=== PATIENT | male | born 1975 | race African-American/Black ===

== ENCOUNTER 2016-09-12 00:42 | Emergency (ER) | payer MEDICAID ==
[~2016-09-12] VITALS: Ht 170.2 cm; Wt 71.0 kg
[2016-09-12 04:45] VITALS: BP 106/61
== END 2016-09-12 05:16 | disposition left against medical advice (07) ==
LOC: ER 00:42
DX: M54.9 Dorsalgia, unspecified (principal); Z53.21 Procedure and treatment not carried out due to patient leaving prior to being seen by health care provider

== ENCOUNTER 2017-03-23 16:33 | Emergency (ER) | payer MEDICAID ==
[~2017-03-23] VITALS: Ht 172.7 cm; Wt 48.0 kg
[2017-03-23 16:41] VITALS: BP 112/60
[2017-03-23] MEDS ORDERED: IPRATROPIUM/ALBUTEROL 0.5-3(2.5)MG/3ML NEB HHN ONE (17:15)
== END 2017-03-23 18:59 | disposition left against medical advice (07) ==
LOC: ER 16:38
DX: R06.02 Shortness of breath (principal); R06.2 Wheezing; R05 Cough; Z71.89 Other specified counseling; R00.0 Tachycardia, unspecified; C34.90 Malignant neoplasm of unspecified part of unspecified bronchus or lung; F12.90 Cannabis use, unspecified, uncomplicated; L90.5 Scar conditions and fibrosis of skin; Z86.19 Personal history of other infectious and parasitic diseases
CPT/HCPCS: 94640; 99283; J7620; Z7610

== ENCOUNTER 2017-03-24 22:28 | Emergency (ER) | payer MEDICAID ==
[~2017-03-24] VITALS: Ht 167.6 cm; Wt 41.0 kg
[2017-03-25 00:31] VITALS: BP 93/63
== END 2017-03-25 01:50 | disposition left against medical advice (07) ==
LOC: ER 22:37
DX: R06.02 Shortness of breath (principal); F17.200 Nicotine dependence, unspecified, uncomplicated; Z53.21 Procedure and treatment not carried out due to patient leaving prior to being seen by health care provider
CPT/HCPCS: Z7610 ×3

== ENCOUNTER 2017-04-02 11:45 | Emergency (ER) | payer MEDICAID ==
[~2017-04-02] VITALS: Ht 167.6 cm; Wt 45.0 kg
[2017-04-02 11:47] VITALS: BP 90/42
[2017-04-02] MEDS ORDERED: IPRATROPIUM BROMIDE (0.02%) 0.5MG/2.5ML NEB HHN STA (15:33)
[2017-04-02] MEDS ORDERED: ALBUTEROL (0.083%) 2.5MG/3ML NEB HHN STA (15:33)
== END 2017-04-02 15:42 | disposition left against medical advice (07) ==
LOC: ER 12:01
DX: R06.2 Wheezing (principal); R06.03 Acute respiratory distress; F12.10 Cannabis abuse, uncomplicated; Z85.118 Personal history of other malignant neoplasm of bronchus and lung
CPT/HCPCS: 99283; Z7610

== ENCOUNTER 2017-04-08 09:53 | Inpatient (IN) | payer MEDICAID ==
[~2017-04-08] VITALS: Ht 167.6 cm; Wt 45.9 kg
[2017-04-08] VITALS (37 sets, daily range): BP systolic 82–111; BP diastolic 42–72
[2017-04-08] MEDS: IPRATROPIUM/ALBUTEROL 0.5-3(2.5)MG/3ML NEB HHN SCH ×2 (00:35→20:31)
[2017-04-08] MEDS ORDERED: DEXTROSE 50% WATER 50ML SYRINGE IV ONE (10:11)
[2017-04-08] MEDS ORDERED: SODIUM CHLORIDE 0.9% 1000ML BAG (SEPSIS BOLUS) IV ONE (10:15)
[2017-04-08] MEDS ORDERED: FENTANYL CITRATE/PF 50MCG/ML 2ML VIAL ONE (10:26)
[2017-04-08] MEDS ORDERED: MIDAZOLAM HCL 50 MG in DEXTROSE 5% WATER 40 ML IV ONE (10:30)
[2017-04-08] MEDS ORDERED: FENTANYL CITRATE/PF 500 MCG in SODIUM CHLORIDE 0.9% 40 ML IV PRN ×2 (10:30→10:45)
[2017-04-08] MEDS ORDERED: IPRATROPIUM BROMIDE (0.02%) 0.5MG/2.5ML NEB HHN STA (10:42)
[2017-04-08] MEDS ORDERED: METHYLPREDNISOLONE SOD SUCC 125 MG/2 ML VIAL IV STA (10:42)
[2017-04-08] MEDS ORDERED: ETOMIDATE 2MG/ML 10ML VIAL IV ONE (10:44)
[2017-04-08] MEDS ORDERED: ATROPINE SULFATE 1MG/10ML SYR ONE (10:44)
[2017-04-08] MEDS ORDERED: MIDAZOLAM HCL 50 MG in DEXTROSE 5% WATER 40 ML IV PRN (10:45)
[2017-04-08] MEDS ORDERED: MAGNESIUM 2 G PREMIX 50 ML IV ONE (10:45)
[2017-04-08] MEDS ORDERED: PROPOFOL 10MG/ML 100ML 100 ML IV ONE (10:59)
[2017-04-08] MEDS ORDERED: ALBUTEROL (0.083%) 2.5MG/3ML NEB HHN SCH (11:00)
[2017-04-08] MEDS ORDERED: PROPOFOL 10MG/ML 100ML 100 ML IV SCH (11:15)
[2017-04-08 11:21] LABS: BASOPHILS % 0.2 % (0.0-2.0); EOSINOPHILS % 0.3 % (0.0-5.0); HEMATOCRIT. 30.9 % (42.0-52.0); HEMOGLOBIN. 8.9 g/dL (14.0-18.0); LYMPHOCYTES % 13.6 % (20.0-50.0); MEAN CORPUSCULAR HEMOGLOBIN 22.7 pg (28.0-32.0); MEAN CORPUSCULAR VOLUME 78.6 fL (80.0-94.0); MEAN PLATELET VOLUME 6.7 fl (7.4-10.4); MONOCYTES % 5.6 % (2.0-8.0); NEUTROPHILS % 80.3 % (40.0-76.0); RED BLOOD CELL COUNT 3.93 mill/uL (4.7-6.1); RED CELL DISTRIBUTION WIDTH 17.4 % (11.6-14.6)
[2017-04-08 11:26] LABS: PLATELET 1166 x1000/uL (130-400)
[2017-04-08 11:28] LABS: CLARITY URINE CLOUDY (CLEAR); COLOR URINE YELLOW (YELLOW); KETONES URINE NEGATIVE (NEGATIVE); LEUKOCYTE ESTERASE URINE NEGATIVE (NEGATIVE); NITRITE URINE NEGATIVE (NEGATIVE); OCCULT BLOOD URINE 1+ (NEGATIVE); PROTEIN URINE 3+ (NEGATIVE)
[2017-04-08 11:40] LABS: INR 1.4; PROTHROMBIN TIME 14.5 sec (9.4-11.6)
[2017-04-08 11:44] LABS: CARBON DIOXIDE 25 mEq/L (21-32); CHLORIDE 99 mEq/L (98-107); TROPONIN I < 0.02 ng/mL (0.00-0.04)
[2017-04-08 11:45] LABS: PLATELET ESTIMATE MARKEDLY INCREASED
[2017-04-08 11:50] LABS: *AMPHETAMINES SCREEN URINE NEGATIVE (NEGATIVE); *BARBITURATES SCREEN URINE NEGATIVE (NEGATIVE); *BENZODIAZEPINES SCREEN URINE NEGATIVE (NEGATIVE); *COCAINE SCREEN URINE NEGATIVE (NEGATIVE); CANNABINOID URINE SCREEN NEGATIVE (NEGATIVE); METHADONE URINE SCREEN NEGATIVE (NEGATIVE); OPIATES URINE SCREEN PRESUMTIVE POSITIVE (NEGATIVE); PHENCYCLIDINE URINE SCREEN NEGATIVE (NEGATIVE)
[2017-04-08] MEDS ORDERED: VANCOMYCIN 1 G PREMIX 200 ML IV ONE (12:15)
[2017-04-08] MEDS ORDERED: PIPERACILLIN/TAZ 3.375G PREMIX 50 ML IV ONE (12:15)
[2017-04-08] MEDS ORDERED: IPRATROPIUM/ALBUTEROL 0.5-3(2.5)MG/3ML NEB HHN PRN (12:30)
[2017-04-08] MEDS ORDERED: IPRATROPIUM/ALBUTEROL 0.5-3(2.5)MG/3ML NEB INH PRN (12:30)
[2017-04-08] MEDS ORDERED: PROPOFOL 10MG/ML 100ML 100 ML IV PRN (12:30)
[2017-04-08] MEDS ORDERED: ACETAMINOPHEN 325MG TABLET PO PRN (12:30)
[2017-04-08] MEDS ORDERED: CLONIDINE 0.1MG TABLET PO PRN (12:30)
[2017-04-08] MEDS ORDERED: MAGNESIUM/ALUMINUM HYDROXIDE/SIMETHICONE 30ML UDC PO PRN (12:30)
[2017-04-08 12:44] LABS: BG BASE EXCESS -2.2 mmol/L (-2.0-2.0); BG CARBOXYHEMOGLOBIN 0.5 % (0.5-1.5); BG FRACTION INSPIRED OXYGEN 90; BG HCO3 ACT 24.7 mmol/L (22.0-26.0); BG METHEMOGLOBIN 0.1 % (0.0-1.5); BG OXYHEMOGLOBIN 99.4 % (94.0-97.0); BG PCO2 52.5 mmHg (35.0-45.0); BG PO2 402.7 mmHg (75.0-100.0); BG SAMPLE SITE RIGHT RADIAL; BG TIDAL VOLUME(mL) 400 mL; BG TOTAL HEMOGLOBIN 9.7 g/dL (12.0-18.0); BG VENT MODE VENT - A/C; BG VENT RATE 16 set
[2017-04-08] MEDS ORDERED: IOHEXOL-350 100 ML BOTTLE ONE (12:54)
[2017-04-08] MEDS ORDERED: VANCOMYCIN 1250MG in DEXTROSE 5% WATER 250ML IV NR (15:30)
[2017-04-08] MEDS: PANTOPRAZOLE SODIUM 40 MG/VIAL IV SCH (16:11)
[2017-04-08] MEDS: PIPERACILLIN/TAZ 3.375G PREMIX 50 ML IV SCH ×2 (16:11→21:40)
[2017-04-08] MEDS: ENOXAPARIN 40MG/0.4ML SYR SUBCUT SCH (16:12)
[2017-04-08 16:22] LABS: CREATINE KINASE 75 IU/L (39-308); CREATINE KINASE MB FRACTION 1.5 ng/mL (0.5-3.6); TOTAL IRON BINDING CAPACITY 99 ug/dL (250-450); TROPONIN I < 0.02 ng/mL (0.00-0.04)
[2017-04-08] MEDS ORDERED: FENTANYL CITRATE/PF 50MCG/ML 2ML VIAL IV NR (19:15)
[2017-04-08] MEDS: VANCOMYCIN 750 MG PREMIX 150 ML IV SCH (23:06)
[2017-04-08] MEDS: NOREPINEPHRINE 4 MG in DEXT 5% WATER 246 ML IV PRN ×2 (23:09→23:48)
[2017-04-08 23:27] LABS: CREATINE KINASE 49 IU/L (39-308); CREATINE KINASE MB FRACTION 1.2 ng/mL (0.5-3.6); TROPONIN I < 0.02 ng/mL (0.00-0.04)
[2017-04-09] VITALS (59 sets, daily range): BP systolic 78–132; BP diastolic 30–85
[2017-04-09 02:43] LABS: BG BASE EXCESS -1.8 mmol/L (-2.0-2.0); BG CARBOXYHEMOGLOBIN 0.3 % (0.5-1.5); BG DEOXYHEMOGLOBIN 0.1 % (0.0-5.0); BG FRACTION INSPIRED OXYGEN 100; BG HCO3 ACT 21.4 mmol/L (22.0-26.0); BG METHEMOGLOBIN 0.1 % (0.0-1.5); BG OXYGEN SATURATION 99.9 % (92.0-98.5); BG OXYHEMOGLOBIN 99.5 % (94.0-97.0); BG PCO2 30.6 mmHg (35.0-45.0); BG PH 7.463 (7.350-7.450); BG PO2 290.4 mmHg (75.0-100.0); BG SAMPLE SITE LEFT RADIAL; BG TOTAL HEMOGLOBIN 9.5 g/dL (12.0-18.0); BG VENT MODE MASK - NRB
[2017-04-09] MEDS: PIPERACILLIN/TAZ 3.375G PREMIX 50 ML IV SCH ×3 (03:46→18:30)
[2017-04-09] MEDS: IPRATROPIUM/ALBUTEROL 0.5-3(2.5)MG/3ML NEB HHN SCH ×6 (04:19→20:48)
[2017-04-09] MEDS: VANCOMYCIN 750 MG PREMIX 150 ML IV SCH ×2 (04:33→10:25)
[2017-04-09 05:30] LABS: BASOPHILS % 0.4 % (0.0-2.0); HEMATOCRIT. 32.2 % (42.0-52.0); HEMOGLOBIN. 9.7 g/dL (14.0-18.0); LYMPHOCYTES % 8.4 % (20.0-50.0); MEAN CORPUSCULAR VOLUME 76.5 fL (80.0-94.0); MEAN PLATELET VOLUME 6.9 fl (7.4-10.4); MONOCYTES % 5.2 % (2.0-8.0); RED BLOOD CELL COUNT 4.21 mill/uL (4.7-6.1); RED CELL DISTRIBUTION WIDTH 17.3 % (11.6-14.6)
[2017-04-09 05:54] LABS: PLATELET 1056 x1000/uL (130-400)
[2017-04-09 06:28] LABS: CARBON DIOXIDE 23 mEq/L (21-32); CHLORIDE 102 mEq/L (98-107)
[2017-04-09 06:39] LABS: HDL CHOLESTEROL 33 mg/dL (40-59); LDL CHOLESTEROL 44 mg/dL (5-100)
[2017-04-09] MEDS: PANTOPRAZOLE SODIUM 40 MG/VIAL IV SCH (08:19)
[2017-04-09] MEDS: MORPHINE SULFATE 4 MG/ML CPJ (NOT FOR IM USE) IV PRN ×4 (08:20→20:19)
[2017-04-09 09:31] LABS: BG BASE EXCESS 0.6 mmol/L (-2.0-2.0); BG CARBOXYHEMOGLOBIN 0.2 % (0.5-1.5); BG DEOXYHEMOGLOBIN 1.3 % (0.0-5.0); BG FRACTION INSPIRED OXYGEN 50; BG HCO3 ACT 24.6 mmol/L (22.0-26.0); BG METHEMOGLOBIN 0.3 % (0.0-1.5); BG OXYGEN SATURATION 98.7 % (92.0-98.5); BG OXYHEMOGLOBIN 98.2 % (94.0-97.0); BG PCO2 37.1 mmHg (35.0-45.0); BG PO2 131.4 mmHg (75.0-100.0); BG SAMPLE SITE LEFT RADIAL; BG TOTAL HEMOGLOBIN 9.2 g/dL (12.0-18.0); BG VENT MODE MASK - VENTI
[2017-04-09] MEDS: ENOXAPARIN 40MG/0.4ML SYR SUBCUT SCH (15:44)
[2017-04-09] MEDS: VANCOMYCIN 1 G PREMIX 200 ML IV SCH (23:19)
[2017-04-10] VITALS (14 sets, daily range): BP systolic 93–127; BP diastolic 51–92
[2017-04-10] MEDS: MORPHINE SULFATE 4 MG/ML CPJ (NOT FOR IM USE) IV PRN ×6 (00:08→21:20)
[2017-04-10] MEDS: IPRATROPIUM/ALBUTEROL 0.5-3(2.5)MG/3ML NEB HHN SCH ×7 (00:58→23:35)
[2017-04-10] MEDS: PIPERACILLIN/TAZ 3.375G PREMIX 50 ML IV SCH ×4 (01:07→17:19)
[2017-04-10] MEDS: VANCOMYCIN 1 G PREMIX 200 ML IV SCH ×3 (06:27→22:19)
[2017-04-10] MEDS: PANTOPRAZOLE SODIUM 40 MG/VIAL IV SCH (08:00)
[2017-04-10 08:36] LABS: HEMATOCRIT. 26.6 % (42.0-52.0); HEMOGLOBIN. 8.1 g/dL (14.0-18.0); LYMPHOCYTES % 8.6 % (20.0-50.0); MEAN CORPUSCULAR HEMOGLOBIN 22.9 pg (28.0-32.0); MEAN CORPUSCULAR VOLUME 75.2 fL (80.0-94.0); MEAN PLATELET VOLUME 6.4 fl (7.4-10.4); MONOCYTES % 8.1 % (2.0-8.0); NEUTROPHILS % 83.3 % (40.0-76.0); PLATELET 949 x1000/uL (130-400); RED BLOOD CELL COUNT 3.54 mill/uL (4.7-6.1); RED CELL DISTRIBUTION WIDTH 17.1 % (11.6-14.6)
[2017-04-10 09:11] LABS: CARBON DIOXIDE 27 mEq/L (21-32); CHLORIDE 102 mEq/L (98-107)
[2017-04-10] MEDS: ENOXAPARIN 40MG/0.4ML SYR SUBCUT SCH (13:50)
[2017-04-10 14:46] LABS: BG BASE EXCESS 0.6 mmol/L (-2.0-2.0); BG CARBOXYHEMOGLOBIN 0.4 % (0.5-1.5); BG DEOXYHEMOGLOBIN 0.1 % (0.0-5.0); BG FRACTION INSPIRED OXYGEN 100; BG HCO3 ACT 24.2 mmol/L (22.0-26.0); BG METHEMOGLOBIN 0.3 % (0.0-1.5); BG OXYGEN SATURATION 99.9 % (92.0-98.5); BG OXYHEMOGLOBIN 99.2 % (94.0-97.0); BG PCO2 34.9 mmHg (35.0-45.0); BG PH 7.459 (7.350-7.450); BG PO2 261.6 mmHg (75.0-100.0); BG SAMPLE SITE LEFT BRACHIAL; BG TOTAL HEMOGLOBIN 9.4 g/dL (12.0-18.0); BG VENT MODE MASK - NRB
[2017-04-10] MEDS: LORAZEPAM 2MG/ML CPJ IV PRN (15:11)
[2017-04-11] VITALS (12 sets, daily range): BP systolic 98–144; BP diastolic 64–88
[2017-04-11] MEDS: PIPERACILLIN/TAZ 3.375G PREMIX 50 ML IV SCH ×5 (00:34→23:21)
[2017-04-11] MEDS: MORPHINE SULFATE 4 MG/ML CPJ (NOT FOR IM USE) IV PRN ×6 (01:28→23:21)
[2017-04-11] MEDS: IPRATROPIUM/ALBUTEROL 0.5-3(2.5)MG/3ML NEB HHN SCH ×5 (03:31→20:38)
[2017-04-11] MEDS: VANCOMYCIN 1 G PREMIX 200 ML IV SCH ×3 (06:09→19:01)
[2017-04-11] MEDS: PANTOPRAZOLE SODIUM 40 MG/VIAL IV SCH (08:48)
[2017-04-11 10:50] LABS: BASOPHILS % 0.2 % (0.0-2.0); EOSINOPHILS % 0.5 % (0.0-5.0); HEMOGLOBIN. 8.2 g/dL (14.0-18.0); LYMPHOCYTES % 10.1 % (20.0-50.0); MEAN CORPUSCULAR HEMOGLOBIN 23.9 pg (28.0-32.0); MEAN CORPUSCULAR VOLUME 76.1 fL (80.0-94.0); MEAN PLATELET VOLUME 6.9 fl (7.4-10.4); MONOCYTES % 7.5 % (2.0-8.0); NEUTROPHILS % 81.7 % (40.0-76.0); PLATELET 797 x1000/uL (130-400); RED BLOOD CELL COUNT 3.42 mill/uL (4.7-6.1); RED CELL DISTRIBUTION WIDTH 17.2 % (11.6-14.6)
[2017-04-11 11:29] LABS: CARBON DIOXIDE 28 mEq/L (21-32); CHLORIDE 101 mEq/L (98-107)
[2017-04-11] MEDS: ENOXAPARIN 40MG/0.4ML SYR SUBCUT SCH (13:01)
[2017-04-11] MEDS ORDERED: POTASSIUM CHLORIDE 20MEQ TABLET SR PO NR (16:01)
[2017-04-11] MEDS: LORAZEPAM 2MG/ML CPJ IV PRN (17:00)
[2017-04-12] VITALS (10 sets, daily range): BP systolic 99–134; BP diastolic 59–75
[2017-04-12] MEDS: MORPHINE SULFATE 4 MG/ML CPJ (NOT FOR IM USE) IV PRN ×7 (03:07→20:39)
[2017-04-12] MEDS: IPRATROPIUM/ALBUTEROL 0.5-3(2.5)MG/3ML NEB HHN SCH ×5 (04:27→21:01)
[2017-04-12] MEDS: PIPERACILLIN/TAZ 3.375G PREMIX 50 ML IV SCH ×3 (05:33→12:48)
[2017-04-12 06:42] LABS: BASOPHILS % 0.2 % (0.0-2.0); HEMOGLOBIN. 7.7 g/dL (14.0-18.0); LYMPHOCYTES % 10.5 % (20.0-50.0); MEAN CORPUSCULAR HEMOGLOBIN 22.7 pg (28.0-32.0); MEAN CORPUSCULAR VOLUME 77.1 fL (80.0-94.0); MONOCYTES % 8.5 % (2.0-8.0); NEUTROPHILS % 79.8 % (40.0-76.0); PLATELET 684 x1000/uL (130-400); RED BLOOD CELL COUNT 3.38 mill/uL (4.7-6.1)
[2017-04-12] MEDS: VANCOMYCIN 1 G PREMIX 200 ML IV SCH ×2 (06:49→17:42)
[2017-04-12] MEDS: PANTOPRAZOLE SODIUM 40 MG/VIAL IV SCH (08:44)
[2017-04-12] MEDS: LORAZEPAM 2MG/ML CPJ IV PRN ×2 (12:49→22:12)
[2017-04-12] MEDS: ENOXAPARIN 40MG/0.4ML SYR SUBCUT SCH (14:10)
[2017-04-12 14:44] LABS: CARBON DIOXIDE 30 mEq/L (21-32); CHLORIDE 105 mEq/L (98-107)
[2017-04-12] MEDS: ONDANSETRON HCL 4MG/2ML VIAL IV PRN (20:37)
[2017-04-13] VITALS (9 sets, daily range): BP systolic 91–121; BP diastolic 58–85
[2017-04-13] MEDS: IPRATROPIUM/ALBUTEROL 0.5-3(2.5)MG/3ML NEB HHN SCH ×6 (01:06→21:12)
[2017-04-13] MEDS: MORPHINE SULFATE 4 MG/ML CPJ (NOT FOR IM USE) IV PRN ×7 (01:41→23:41)
[2017-04-13] MEDS: LORAZEPAM 2MG/ML CPJ IV PRN (03:33)
[2017-04-13] MEDS: VANCOMYCIN 1 G PREMIX 200 ML IV SCH ×2 (05:56→18:01)
[2017-04-13] MEDS: PIPERACILLIN/TAZ 3.375G PREMIX 50 ML IV SCH ×5 (07:30→23:55)
[2017-04-13] MEDS: PANTOPRAZOLE SODIUM 40 MG/VIAL IV SCH (09:47)
[2017-04-13] MEDS ORDERED: METHYLPREDNISOLONE SOD SUCC 125 MG/2 ML VIAL IV NR (10:00)
[2017-04-13 10:09] LABS: BG BASE EXCESS 7.1 mmol/L (-2.0-2.0); BG CARBOXYHEMOGLOBIN 0.6 % (0.5-1.5); BG DEOXYHEMOGLOBIN 0.9 % (0.0-5.0); BG FRACTION INSPIRED OXYGEN 40; BG HCO3 ACT 32.9 mmol/L (22.0-26.0); BG METHEMOGLOBIN 0.1 % (0.0-1.5); BG OXYGEN SATURATION 99.1 % (92.0-98.5); BG OXYHEMOGLOBIN 98.4 % (94.0-97.0); BG PCO2 53.8 mmHg (35.0-45.0); BG PH 7.404 (7.350-7.450); BG PO2 151.4 mmHg (75.0-100.0); BG SAMPLE SITE LEFT BRACHIAL; BG TOTAL HEMOGLOBIN 8.9 g/dL (12.0-18.0); BG VENT MODE NASAL CANNULA
[2017-04-13] MEDS ORDERED: POTASSIUM CHLORIDE 20MEQ TABLET SR PO NR (10:45)
[2017-04-13] MEDS: ENOXAPARIN 40MG/0.4ML SYR SUBCUT SCH (15:49)
[2017-04-13] MEDS: METHYLPREDNISOLONE SOD SUCC 40 MG/ML VIAL IV SCH (18:00)
[2017-04-14] VITALS (18 sets, daily range): BP systolic 103–135; BP diastolic 34–88
[2017-04-14] MEDS: IPRATROPIUM/ALBUTEROL 0.5-3(2.5)MG/3ML NEB HHN SCH ×6 (00:06→20:50)
[2017-04-14] MEDS: METHYLPREDNISOLONE SOD SUCC 40 MG/ML VIAL IV SCH ×3 (02:20→20:36)
[2017-04-14] MEDS: MORPHINE SULFATE 4 MG/ML CPJ (NOT FOR IM USE) IV PRN ×4 (02:22→20:37)
[2017-04-14] MEDS: VANCOMYCIN 1 G PREMIX 200 ML IV SCH ×2 (05:19→18:20)
[2017-04-14] MEDS: PIPERACILLIN/TAZ 3.375G PREMIX 50 ML IV SCH ×3 (06:53→18:19)
[2017-04-14 07:24] LABS: HEMATOCRIT. 24.1 % (42.0-52.0); HEMOGLOBIN. 7.5 g/dL (14.0-18.0); MEAN CORPUSCULAR HEMOGLOBIN 23.9 pg (28.0-32.0); MEAN CORPUSCULAR VOLUME 76.5 fL (80.0-94.0); MEAN PLATELET VOLUME 7.5 fl (7.4-10.4); PLATELET 639 x1000/uL (130-400); RED BLOOD CELL COUNT 3.15 mill/uL (4.7-6.1)
[2017-04-14 08:02] LABS: CHLORIDE 106 mEq/L (98-107)
[2017-04-14 08:16] LABS: CARBON DIOXIDE 29 mEq/L (21-32)
[2017-04-14] MEDS: LORAZEPAM 2MG/ML CPJ IV PRN ×2 (08:41→18:19)
[2017-04-14] MEDS: PANTOPRAZOLE SODIUM 40 MG/VIAL IV SCH (08:41)
[2017-04-14 10:54] LABS: PLATELET ESTIMATE INCREASED
[2017-04-14] MEDS: ENOXAPARIN 40MG/0.4ML SYR SUBCUT SCH (14:00)
[2017-04-14 21:30] LABS: BG BASE EXCESS -5.5 mmol/L (-2.0-2.0); BG CARBOXYHEMOGLOBIN 0.6 % (0.5-1.5); BG DEOXYHEMOGLOBIN 0.5 % (0.0-5.0); BG FRACTION INSPIRED OXYGEN 40; BG HCO3 ACT 18.4 mmol/L (22.0-26.0); BG METHEMOGLOBIN 0.3 % (0.0-1.5); BG OXYGEN SATURATION 99.5 % (92.0-98.5); BG OXYHEMOGLOBIN 98.6 % (94.0-97.0); BG PCO2 29.8 mmHg (35.0-45.0); BG PH 7.408 (7.350-7.450); BG PO2 173.8 mmHg (75.0-100.0); BG SAMPLE SITE RIGHT RADIAL; BG TOTAL HEMOGLOBIN 8.7 g/dL (12.0-18.0); BG VENT MODE NASAL CANNULA
[2017-04-14] MEDS ORDERED: MORPHINE SULFATE 4 MG/ML CPJ (NOT FOR IM USE) IV SCH (22:30)
[2017-04-15] VITALS (9 sets, daily range): BP systolic 114–146; BP diastolic 64–91
[2017-04-15] MEDS: PIPERACILLIN/TAZ 3.375G PREMIX 50 ML IV SCH ×4 (00:21→19:02)
[2017-04-15] MEDS: IPRATROPIUM/ALBUTEROL 0.5-3(2.5)MG/3ML NEB HHN SCH ×6 (00:21→20:23)
[2017-04-15] MEDS: MORPHINE SULFATE 4 MG/ML CPJ (NOT FOR IM USE) IV PRN ×4 (01:45→15:08)
[2017-04-15] MEDS: LORAZEPAM 2MG/ML CPJ IV PRN ×2 (04:40→12:25)
[2017-04-15] MEDS: VANCOMYCIN 1 G PREMIX 200 ML IV SCH ×2 (06:22→17:13)
[2017-04-15] MEDS: METHYLPREDNISOLONE SOD SUCC 40 MG/ML VIAL IV SCH (07:49)
[2017-04-15] MEDS: PANTOPRAZOLE SODIUM 40 MG/VIAL IV SCH (07:49)
[2017-04-15] MEDS ORDERED: METHYLPREDNISOLONE SOD SUCC 40 MG/ML VIAL IV SCH (09:45)
[2017-04-15] MEDS: ENOXAPARIN 40MG/0.4ML SYR SUBCUT SCH (15:09)
[2017-04-15] MEDS: PANTOT AC/MIN OIL/PET HY-PHL OINT 52.5GM (AQUAPHOR) TOP SCH (15:18)
[2017-04-15] MEDS: MORPHINE SULFATE 2 MG/ML CPJ (NOT FOR IM USE) IV PRN (19:42)
[2017-04-16] VITALS (13 sets, daily range): BP systolic 109–138; BP diastolic 60–79
[2017-04-16] MEDS: ONDANSETRON HCL 4MG/2ML VIAL IV PRN (00:14)
[2017-04-16] MEDS: PIPERACILLIN/TAZ 3.375G PREMIX 50 ML IV SCH ×5 (00:14→23:55)
[2017-04-16] MEDS: MORPHINE SULFATE 2 MG/ML CPJ (NOT FOR IM USE) IV PRN ×6 (00:14→22:30)
[2017-04-16] MEDS: IPRATROPIUM/ALBUTEROL 0.5-3(2.5)MG/3ML NEB HHN SCH ×6 (00:55→20:36)
[2017-04-16] MEDS: PANTOT AC/MIN OIL/PET HY-PHL OINT 52.5GM (AQUAPHOR) TOP SCH (08:20)
[2017-04-16] MEDS: METHYLPREDNISOLONE SOD SUCC 40 MG/ML VIAL IV SCH (08:20)
[2017-04-16] MEDS: PANTOPRAZOLE SODIUM 40 MG/VIAL IV SCH (08:20)
[2017-04-16] MEDS: HYDROCODONE/ACETAMINOPHEN 5/325MG TABLET PO PRN ×2 (12:59→20:34)
[2017-04-16] MEDS: ENOXAPARIN 40MG/0.4ML SYR SUBCUT SCH (15:08)
[2017-04-16] MEDS: VANCOMYCIN 1 G PREMIX 200 ML IV SCH (19:30)
[2017-04-17] VITALS (13 sets, daily range): BP systolic 111–128; BP diastolic 57–72
[2017-04-17] MEDS: IPRATROPIUM/ALBUTEROL 0.5-3(2.5)MG/3ML NEB HHN SCH ×6 (00:27→20:57)
[2017-04-17] MEDS: MORPHINE SULFATE 2 MG/ML CPJ (NOT FOR IM USE) IV PRN ×6 (02:32→22:21)
[2017-04-17] MEDS: VANCOMYCIN 1 G PREMIX 200 ML IV SCH ×2 (06:27→18:05)
[2017-04-17] MEDS: PIPERACILLIN/TAZ 3.375G PREMIX 50 ML IV SCH ×3 (06:28→19:58)
[2017-04-17 07:40] LABS: HEMATOCRIT. 25.4 % (42.0-52.0); HEMOGLOBIN. 7.9 g/dL (14.0-18.0); MEAN CORPUSCULAR HEMOGLOBIN 23.8 pg (28.0-32.0); MEAN CORPUSCULAR VOLUME 76.3 fL (80.0-94.0); MEAN PLATELET VOLUME 7.4 fl (7.4-10.4); PLATELET 647 x1000/uL (130-400); RED BLOOD CELL COUNT 3.32 mill/uL (4.7-6.1); RED CELL DISTRIBUTION WIDTH 17.3 % (11.6-14.6)
[2017-04-17 07:43] LABS: CARBON DIOXIDE 34 mEq/L (21-32); CHLORIDE 100 mEq/L (98-107)
[2017-04-17] MEDS: METHYLPREDNISOLONE SOD SUCC 40 MG/ML VIAL IV SCH (08:31)
[2017-04-17] MEDS: PANTOT AC/MIN OIL/PET HY-PHL OINT 52.5GM (AQUAPHOR) TOP SCH (08:31)
[2017-04-17] MEDS: PANTOPRAZOLE SODIUM 40 MG/VIAL IV SCH (08:31)
[2017-04-17] MEDS ORDERED: POTASSIUM CHLORIDE 20MEQ/PACKET PO NR (09:15)
[2017-04-17 10:35] LABS: PLATELET ESTIMATE INCREASED
[2017-04-17] MEDS ORDERED: VISCOUS LIDOCAINE 2% 15 ML UDC MM PRN (11:15)
[2017-04-17] MEDS: HYDROCODONE/ACETAMINOPHEN 5/325MG TABLET PO PRN ×2 (11:56→21:24)
[2017-04-17] MEDS ORDERED: LIDOCAINE HCL 20 MG/ML 100ML BOTTLE MM PRN (12:45)
[2017-04-17] MEDS: ENOXAPARIN 40MG/0.4ML SYR SUBCUT SCH (14:38)
[2017-04-17] MEDS: NYSTATIN 100,000 UNITS/ML 5ML UDC SSW SCH ×2 (14:38→18:05)
[2017-04-18] VITALS (8 sets, daily range): BP systolic 116–128; BP diastolic 57–73
[2017-04-18] MEDS: IPRATROPIUM/ALBUTEROL 0.5-3(2.5)MG/3ML NEB HHN SCH ×4 (00:44→12:29)
[2017-04-18] MEDS: PIPERACILLIN/TAZ 3.375G PREMIX 50 ML IV SCH ×3 (01:06→11:18)
[2017-04-18] MEDS: NYSTATIN 100,000 UNITS/ML 5ML UDC SSW SCH ×3 (01:06→11:17)
[2017-04-18] MEDS: MORPHINE SULFATE 2 MG/ML CPJ (NOT FOR IM USE) IV PRN ×3 (03:24→11:20)
[2017-04-18] MEDS: VANCOMYCIN 1 G PREMIX 200 ML IV SCH (05:04)
[2017-04-18] MEDS: PANTOT AC/MIN OIL/PET HY-PHL OINT 52.5GM (AQUAPHOR) TOP SCH (08:08)
[2017-04-18] MEDS: METHYLPREDNISOLONE SOD SUCC 40 MG/ML VIAL IV SCH (08:08)
[2017-04-18] MEDS: PANTOPRAZOLE SODIUM 40 MG/VIAL IV SCH (08:08)
[2017-04-18] MEDS: HYDROCODONE/ACETAMINOPHEN 5/325MG TABLET PO PRN (10:07)
== END 2017-04-18 13:23 | disposition hospice, home (50) | DRG 720 ==
LOC: ER 09:57 → MICUNO 11:36 → ENRESERV 11:39 → EDBEDREQ 11:40 → 3WST 04-09 23:23
PROVIDERS: ADMIT Internal Medicine; ATTEND Internal Medicine
PROC: 5A1935Z Respiratory Ventilation, Less than 24 Consecutive Hours (ICD-10-PCS; principal; 2017-04-08)
PROC: 0BH17EZ Insertion of Endotracheal Airway into Trachea, Via Natural or Artificial Opening (ICD-10-PCS; 2017-04-08)
DX: A41.9 Sepsis, unspecified organism (principal); J96.01 Acute respiratory failure with hypoxia; E43 Unspecified severe protein-calorie malnutrition; J18.9 Pneumonia, unspecified organism; C79.9 Secondary malignant neoplasm of unspecified site; R13.10 Dysphagia, unspecified; B37.0 Candidal stomatitis; I95.9 Hypotension, unspecified; C34.90 Malignant neoplasm of unspecified part of unspecified bronchus or lung; J43.9 Emphysema, unspecified; D50.9 Iron deficiency anemia, unspecified; F17.210 Nicotine dependence, cigarettes, uncomplicated; E87.6 Hypokalemia; I10 Essential (primary) hypertension; R62.7 Adult failure to thrive; Z51.5 Encounter for palliative care; D47.3 Essential (hemorrhagic) thrombocythemia; Z68.1 Body mass index [BMI] 19.9 or less, adult
CPT/HCPCS: 36415; 36600; 71045; 71275; 80048; 80053; 80061; 80202; 80305; 81001; 82375; 82378; 82550; 82553; 82805; 82962; 83540; 83550; 83605; 83735; 83880; 84443; 84484; 85025; 85044; 85610; 87040; 87070; 87086; 92610; 93005; 93306; 93970; 94002; 94640; 97163; 99291; C9113; J0461; J1650; J2060; J2250; J2270; J2405; J2543; J2704; J2920; J2930; J3010; J3370; J3475; J3490; J7030; J7040; J7060; J7611; J7620; Q9967